=== PATIENT | male | born 1950 | race Caucasian/White ===

== ENCOUNTER → 2016-09-13 | Outpatient (CLI) | payer OTHER, BC ==
[2016-09-13 09:40] LABS: HEMATOCRIT 40.5 % (42-52); MEAN CORPUSCULAR HEMOGLOBIN 29.9 pg (25-34); MEAN CORPUSCULAR HGB CONC 33.6 g/dl (32-36); MEAN PLATELET VOLUME 10.6 fL (7.4-10.4); PLATELET COUNT 284 K/uL (130-400); RED BLOOD COUNT 4.55 M/uL (4.7-6.1); WHITE BLOOD COUNT 3.56 K/uL (4.8-10.8)
[2016-09-13 09:58] LABS: ALT/SGPT 32 U/L (12-78); AST/SGOT 16 U/L (15-37); BLOOD UREA NITROGEN 27 mg/dl (7-18); CALCIUM 8.7 mg/dl (8.5-10.1); CARBON DIOXIDE 24 mmol/L (21-32); CHLORIDE 109 mmol/L (98-107); GLUCOSE 92 mg/dl (70-99); POTASSIUM 4.5 mmol/L (3.5-5.1); SODIUM 142 mmol/L (136-145)
[2016-09-13 10:01] LABS: URINE APPEARANCE CLEAR (CLEAR); URINE BILIRUBIN NEG (NEG); URINE COLOR YELLOW; URINE EPITHELIAL CELL AUTO 0-5 /lpf (0-5); URINE NITRITE NEG (NEG); URINE PH 5.5 (4.5-7.5); URINE SPECIFIC GRAVITY 1.013 (1.000-1.030); UROBILINOGEN NEG (NEG)
[2016-09-13 10:04] LABS: MANUAL MICROSCOPIC REQUIRED? NO; REVIEW REQ? NO
[2016-09-13 10:10] LABS: ALKALINE PHOSPHATASE 71 U/L (45-117); CHOLESTEROL 216 mg/dl (0-200); CHOLESTEROL/HDL RATIO 4.4; HDL CHOLESTEROL 49 mg/dl; LDL CHOLESTEROL CALCULATED 140 mg/dl; TRIGLYCERIDES 136 mg/dl (0-150); URIC ACID 7.4 mg/dl (2.6-7.2); VERY LOW DENSITY LIPOPROT CALC 27 mg/dl
[2016-09-13 10:14] LABS: URINE PROTIEN/CREAT RATIO 0.1 (0-0.2); URINE TOTAL PROTEIN 13.4 mg/dl (0-11.9)
--- NOTE | 2016-09-17 09:57 | CODING QUERY MEDICAL NECESSITY ---
SUPPORTING DIAGNOSIS NEEDED Dr. Arnett, A supporting diagnosis is required for the test/procedure performed on this patient in order for us to be reimbursed by the patient's insurance. Please provide a supporting diagnosis for the following test/procedure listed below next to the test name along with your signature. *If there is no additional diagnosis for this patient that would support the following test/procedure please document that below next to the test/procedure. Test(s)/Procedure(s) that require a supporting diagnosis: * [id number] PSA DIAGNOSIS: DATE OF SERVICE: 09/13/16 Provider Signature: Date: Thank you Keven Mccain [facility] Information Management Once completed, please kindly fax back to [phone] For questions please call [phone]
== END | disposition home or self-care (01) ==
LOC: C.LAB1850 07:06
PROVIDERS: ATTEND Internal Medicine Nephrology
DX: I12.9 Hypertensive chronic kidney disease with stage 1 through stage 4 chronic kidney disease, or unspecified chronic kidney disease (principal); N18.3 Chronic kidney disease, stage 3 (moderate); E55.9 Vitamin D deficiency, unspecified; N40.0 Benign prostatic hyperplasia without lower urinary tract symptoms

== ENCOUNTER → 2017-01-17 | Outpatient (CLI) | payer OTHER, BC ==
--- NOTE | 2017-01-17 16:27 | DIAGNOSTIC IMAGING REPORT ---
RIGHT HIP UNILATERAL 2 VIEWS CLINICAL HISTORY: R HIP PAIN Right pain COMPARISON: None. DISCUSSION: Considerable narrowing right hip joint space. Several degenerative subchondral cyst. Peripheral osteophytic reaction of the acetabulum. No evidence for acetabular protrusion. There is no evidence for soft tissue swelling. IMPRESSION: Considerable degenerative change. No acute process. Electronically signed by: Andry Colon M.D. 01/17/2017 4:25 PM Dictated Date/Time: 01/17/2017 4:25 PM
== END | disposition home or self-care (01) ==
LOC: C.RAD1850 16:13
PROVIDERS: ATTEND Nurse Practitioner Family
DX: M54.5 Low back pain (principal); M25.551 Pain in right hip

== ENCOUNTER → 2017-03-19 | Outpatient (CLI) | payer OTHER, BC ==
[2017-03-19 09:35] LABS: HEMATOCRIT 40.7 % (42-52); MEAN CELL VOLUME 90.6 fL (80-100); MEAN CORPUSCULAR HEMOGLOBIN 29.6 pg (25-34); MEAN CORPUSCULAR HGB CONC 32.7 g/dl (32-36); MEAN PLATELET VOLUME 10.5 fL (7.4-10.4); PLATELET COUNT 275 K/uL (130-400); RED BLOOD COUNT 4.49 M/uL (4.7-6.1); WHITE BLOOD COUNT 3.79 K/uL (4.8-10.8)
[2017-03-19 09:44] LABS: URINE APPEARANCE CLEAR (CLEAR); URINE BILIRUBIN NEG (NEG); URINE COLOR YELLOW; URINE EPITHELIAL CELL AUTO 0-5 /lpf (0-5); URINE NITRITE NEG (NEG); UROBILINOGEN NEG (NEG)
[2017-03-19 09:46] LABS: MANUAL MICROSCOPIC REQUIRED? NO; REVIEW REQ? NO
[2017-03-19 09:57] LABS: URINE PROTIEN/CREAT RATIO 0.1 (0-0.2); URINE TOTAL PROTEIN 18.9 mg/dl (0-11.9)
[2017-03-19 10:06] LABS: BLOOD UREA NITROGEN 26 mg/dl (7-18); BUN/CREATININE RATIO 13.9 (10-20); CALCIUM 8.4 mg/dl (8.5-10.1); CARBON DIOXIDE 24 mmol/L (21-32); CHLORIDE 110 mmol/L (98-107); GLUCOSE 100 mg/dl (70-99); PHOSPHORUS 2.9 mg/dl (2.5-4.9); POTASSIUM 4.4 mmol/L (3.5-5.1); SODIUM 139 mmol/L (136-145); URIC ACID 8.6 mg/dl (2.6-7.2)
== END | disposition home or self-care (01) ==
LOC: C.LAB1850 07:17
PROVIDERS: ATTEND Internal Medicine Nephrology
DX: I10 Essential (primary) hypertension (principal); E55.9 Vitamin D deficiency, unspecified; N18.3 Chronic kidney disease, stage 3 (moderate)

== ENCOUNTER → 2017-09-29 | Outpatient (CLI) | payer OTHER, BC ==
[2017-09-29 09:33] LABS: HEMATOCRIT 39.5 % (42-52); HEMOGLOBIN 13.4 g/dL (14.0-18.0); MEAN CORPUSCULAR HEMOGLOBIN 30.2 pg (25-34); MEAN CORPUSCULAR HGB CONC 33.9 g/dl (32-36); MEAN PLATELET VOLUME 9.9 fL (7.4-10.4); PLATELET COUNT 294 K/uL (130-400); RED CELL DISTRIBUTION WIDTH CV 13.3 % (11.5-14.5); RED CELL DISTRIBUTION WIDTH SD 43.1 fL (36.4-46.3); WHITE BLOOD COUNT 3.97 K/uL (4.8-10.8)
[2017-09-29 09:55] LABS: ALBUMIN 3.7 gm/dl (3.4-5.0); ALT/SGPT 32 U/L (12-78); AST/SGOT 16 U/L (15-37); BLOOD UREA NITROGEN 25 mg/dl (7-18); CALCIUM 8.6 mg/dl (8.5-10.1); CARBON DIOXIDE 24 mmol/L (21-32); GLUCOSE 92 mg/dl (70-99); POTASSIUM 4.4 mmol/L (3.5-5.1); SODIUM 137 mmol/L (136-145)
[2017-09-29 10:06] LABS: ALKALINE PHOSPHATASE 72 U/L (45-117); CHOLESTEROL 233 mg/dl (0-200); LDL CHOLESTEROL CALCULATED 159 mg/dl; TOTAL PROTEIN 7.7 gm/dl (6.4-8.2)
== END | disposition home or self-care (01) ==
LOC: C.LAB1850 07:15
PROVIDERS: ATTEND Internal Medicine Nephrology
DX: I12.9 Hypertensive chronic kidney disease with stage 1 through stage 4 chronic kidney disease, or unspecified chronic kidney disease (principal); N18.3 Chronic kidney disease, stage 3 (moderate); E55.9 Vitamin D deficiency, unspecified

== ENCOUNTER 2019-06-09 04:50 | Inpatient (IN) ==
--- NOTE | 2019-05-11 08:46 | PAT Medication Instructions ---
Medication Instructions Date of Service May 11, 2019 Home Medications C,E,zinc,copper [id number] [Ocuvite Adult 50 Plus] 1 cap PO DAILY Curamin 2,706 mg PO DAILY Glutathione 500 mg PO DAILY Monolaurin 600 mg PO DAILY Phytocore 1 dose PO DAILY activated charcoal 1,000 mg PO DAILY ascorbic acid (vitamin C) [Vitamin C] 1 g PO DAILY brimonidine-timolol [Combigan] 1 drp OPHTHALMIC (EYE) Q12H rbinehcxt-lnufakrz-zom-hyalur [Joint Health] 1 tab PO DAILY cholecalciferol (vitamin D3) [Vitamin D3] 4,000 unit PO DAILY latanoprost 1 drp OPHTHALMIC (EYE) DAILY lisinopril 5 mg PO QAM vitamin B complex [Balance B-100] 1 tab PO DAILY STOP taking 2 weeks before surgery (or as soon as possible if surgery is within 2 weeks) C,E,zinc,copper [id number] [Ocuvite Adult 50 Plus] 1 cap PO DAILY Curamin 2,706 mg PO DAILY Glutathione 500 mg PO DAILY Monolaurin 600 mg PO DAILY Phytocore 1 dose PO DAILY activated charcoal 1,000 mg PO DAILY brimonidine-timolol [Combigan] 1 drp OPHTHALMIC (EYE) Q12H cqfhsejlc-amjwxpub-bnb-hyalur [Joint Health] 1 tab PO DAILY DO NOT take the morning of surgery ascorbic acid (vitamin C) [Vitamin C] 1 g PO DAILY cholecalciferol (vitamin D3) [Vitamin D3] 4,000 unit PO DAILY lisinopril 5 mg PO QAM vitamin B complex [Balance B-100] 1 tab PO DAILY Take morning of surgery With a small sip of water, OTHERWISE NOTHING TO EAT OR DRINK AFTER MIDNIGHT: brimonidine-timolol [Combigan] 1 drp OPHTHALMIC (EYE) Q12H latanoprost 1 drp OPHTHALMIC (EYE) DAILY Other Notes If you have any questions please call us at [phone] or [phone] or [phone] or [phone]
--- NOTE | 2019-05-13 13:03 | Anesthesiology Consultation ---
Date of Service May 13, 2019 Assessment & Plan (1) Encounter for pre-operative examination: - Awaiting review preop testing (labs, EKG, CXR). - Abnormal preop EKG/elevated BP at [facility] visit: will arrange cardiology preop evaluation prior to surgery. Chart Review Chart Review: Patient seen in Pre Admission Testing Teaching & Discussion Pre-Anesthesia Teaching/Discussion Notes: Instructed NPO after midnight before surgery,except medications with 15 cc of water. Medication instructions provided according to the [facility] guidelines. History Surgery Operation Date: 06/09/19 14:05 Proposed Procedures p Right Total Hip Arthroplasty - Ugo Young MD Height/Weight Height: 5 ft 10 in Weight: 86.4 kg Allergies Allergy/AdvReac Type Severity Reaction Status Date / Time latex Allergy Unknown Rash Verified 05/13/19 13:01 Medications Home Medications Medication Instructions Recorded Confirmed Last Taken C,E,zinc,copper [id number] 1 cap PO DAILY 05/05/19 05/05/19 Unknown [Ocuvite Adult 50 Plus] Curamin 2,706 mg PO DAILY 05/05/19 05/05/19 Unknown Glutathione 500 mg PO DAILY 05/05/19 05/05/19 Unknown Monolaurin 600 mg PO DAILY 05/05/19 05/05/19 Unknown Phytocore 1 dose PO DAILY 05/05/19 05/05/19 Unknown activated charcoal 1,000 mg PO DAILY 05/05/19 05/05/19 Unknown ascorbic acid (vitamin C) [Vitamin 1 g PO DAILY 05/05/19 05/05/19 Unknown C] brimonidine-timolol [Combigan] 1 drp OPHTHALMIC (EYE) Q12H 05/05/19 05/05/19 Unknown obcwhnerf-leoumtyi-uka-hyalur 1 tab PO DAILY 05/05/19 05/05/19 Unknown [Joint Health] cholecalciferol (vitamin D3) 4,000 unit PO DAILY 05/05/19 05/05/19 Unknown [Vitamin D3] latanoprost 1 drp OPHTHALMIC (EYE) DAILY 05/05/19 05/05/19 Unknown lisinopril 5 mg PO QAM 05/05/19 05/05/19 Unknown vitamin B complex [Balance B-100] 1 tab PO DAILY 05/05/19 05/05/19 Unknown Past Medical History Medical History Borderline high cholesterol CKD (chronic kidney disease) Hernia b/l inguinal Hypertension Osteoarthritis Exercise / Class Metabolic Activity II 4-5 Yardwork/Stairs/Walk up hill Past Surgical History Surgical History History of colonoscopy History of tonsillectomy and adenoidectomy History of vasectomy Past Anesthesia History No Hx of Anesthesia Complications and No Family Hx of Anesthesia Complications History of PONV No Hx of PONV Social History Smoking Status: Never smoker Do You Dip or Chew Tobacco: No Hx Alcohol Use: Yes Alcohol type: wine alcohol intake frequency: other Alcohol Intake Frequency Comment: WEEKENDS, FEW GLASSES OF WINE Hx Substance Use: No substance use type: does not use Review of Systems Rare reflux. Patient denies chest pain, shortness of breath, dyspnea on exertion, cough, wheezing, palpitations. Physical Exam Vital Signs VITALS BP 182/103-- patient reports white coat syndrome/thinks he forgot to take Lisinopril this morning-- manual recheck on right 162/92 P 84 TEMP 97.8 SP02 98%RA RESP 18 PHYSICAL Full neck and c-spine range of motion. Full TMJ range of motion. TMD 2 finger breaths (small chin) Mallampati Score 3 Dentition: missing molars, upper front overlays, cap on molar Lungs: clear throughout to auscultation Cardiac: regular rate and rhythm, no murmurs noted Spine: normal Carotid arteries: negative bruit Extremities: no edema
--- NOTE | 2019-05-13 13:55 | XRay Report ---
XR chest Pre-admission PA/Lat CLINICAL HISTORY: Preoperative chest COMPARISON STUDY: No previous studies for comparison. FINDINGS: The cardiac and mediastinal contours are normal. There is no evidence of focal pulmonary co nsolidation. There is no evidence of failure. No pleural effusions are visualized.[Degenerative montague es are present within the dorsal spine with evidence of ankylosis. IMPRESSION: No active disease in the chest. Electronically signed by: Jimbo Meza M.D. 05/13/2019 1:54 PM
[2019-05-13 14:00] LABS: Basophils # (auto) 0.05 K/uL (0-0.2); Basophils % (auto) 0.9 %; Eosinophils # (auto) 0.88 K/uL (0-0.5); Eosinophils % (auto) 15.7 %; Hematocrit (blood only) 40.7 % (42-52); Hemoglobin 13.5 g/dL (14.0-18.0); Immature Granulocytes # (auto) 0.01 K/uL (0.00-0.02); Immature Granulocytes % (auto) 0.2 %; Lymphocytes # (auto) 1.55 K/uL (1.2-3.4); Lymphocytes % (auto) 27.6 %; Mean Corpuscular Hemoglobin 30.3 pg (25-34); Mean Corpuscular Hgb Conc 33.2 g/dL (32-36); Mean Corpuscular Volume 91.3 fL (80-100); Mean Platelet Volume 10.4 fL (7.4-10.4); Monocytes # (auto) 0.51 K/uL (0.11-0.59); Monocytes % (auto) 9.1 %; Neutrophils # (auto) 2.61 K/uL (1.4-6.5); Neutrophils % (auto) 46.5 %; Platelet Count 270 K/uL (130-400); RDW Coefficient of Variation 13.3 % (11.5-14.5); RDW Standard Deviation 44.3 fL (36.4-46.3); Red Blood Count 4.46 M/uL (4.7-6.1); White Blood Count 5.61 K/uL (4.8-10.8)
[2019-05-13 14:20] LABS: Partial Thromboplastin Ratio 0.9; Partial Thromboplastin Time 24.5 Seconds (21.0-31.0); Prothrombin Time 10.3 Seconds (9.0-12.0)
--- NOTE | 2019-05-13 14:25 | Anesthesiology Consultation ---
Date of Service May 13, 2019 Assessment & Plan (1) Encounter for pre-operative examination: - Awaiting review preop testing (labs, EKG, CXR). - Abnormal preop EKG/elevated BP at PAT visit: will arrange cardiology preop evaluation prior to surgery for further evaluation. History Surgery Operation Date: 06/09/19 14:05 Proposed Procedures p Right Total Hip Arthroplasty - Ugo Young MD Height/Weight Height: 5 ft 10 in Weight: 86.4 kg Allergies Allergy/AdvReac Type Severity Reaction Status Date / Time latex Allergy Unknown Rash Verified 05/13/19 13:01 Medications Home Medications Medication Instructions Recorded Confirmed Last Taken C,E,zinc,copper [id number] 1 cap PO DAILY 05/05/19 05/05/19 Unknown [Ocuvite Adult 50 Plus] Curamin 2,706 mg PO DAILY 05/05/19 05/05/19 Unknown Glutathione 500 mg PO DAILY 05/05/19 05/05/19 Unknown Monolaurin 600 mg PO DAILY 05/05/19 05/05/19 Unknown Phytocore 1 dose PO DAILY 05/05/19 05/05/19 Unknown activated charcoal 1,000 mg PO DAILY 05/05/19 05/05/19 Unknown ascorbic acid (vitamin C) [Vitamin 1 g PO DAILY 05/05/19 05/05/19 Unknown C] brimonidine-timolol [Combigan] 1 drp OPHTHALMIC (EYE) Q12H 05/05/19 05/05/19 Unknown durqptwbn-ktmwvmer-pvc-hyalur 1 tab PO DAILY 05/05/19 05/05/19 Unknown [Joint Health] cholecalciferol (vitamin D3) 4,000 unit PO DAILY 05/05/19 05/05/19 Unknown [Vitamin D3] latanoprost 1 drp OPHTHALMIC (EYE) DAILY 05/05/19 05/05/19 Unknown lisinopril 5 mg PO QAM 05/05/19 05/05/19 Unknown vitamin B complex [Balance B-100] 1 tab PO DAILY 05/05/19 05/05/19 Unknown Past Medical History Medical History Borderline high cholesterol CKD (chronic kidney disease) Hernia b/l inguinal Hypertension Osteoarthritis Past Surgical History Surgical History History of colonoscopy History of tonsillectomy and adenoidectomy History of vasectomy Social History Smoking Status: Never smoker Do You Dip or Chew Tobacco: No Hx Alcohol Use: Yes Alcohol type: wine alcohol intake frequency: other Alcohol Intake Frequency Comment: WEEKENDS, FEW GLASSES OF WINE Hx Substance Use: No substance use type: does not use Testing Laboratory Results 05/13/19 12:56 PT 10.3 Seconds (9.0-12.0) 05/13/19 12:56 INR 1.0 (0.9-1.1) 05/13/19 12:56 APTT 24.5 Seconds (21.0-31.0) 05/13/19 12:56
[2019-05-13 14:46] LABS: BUN Creatinine Ratio 14.7 (10-20); Calcium 8.5 mg/dl (8.5-10.1); Creatinine Clr Calc Pharmacy 38.6 ml/min; Est GFR (African American) 42.1; Est GFR (Non-African American) 36.3; Potassium 4.1 mmol/L (3.5-5.1)
--- NOTE | 2019-06-05 12:10 | History and Physical Report ---
DATE OF ADMISSION: 06/09/2019 CHIEF COMPLAINT: Right hip pain. HISTORY OF PRESENT ILLNESS: A 68-year-old very active gentleman who has got about a 1+ year history of increasing right hip pain and discomfort. No particular injury. It has just gradually gotten worse over time. He describes buttock pain, groin pain, thigh pain going down to his knee. Denies any numbness. He does have some chronic back issues as well. This pain feels different to him. It is really limiting his activities. He cannot take NSAIDs due to some underlying kidney disease. He does have difficulty putting his shoes and socks on. He has difficulty going up and down steps. He has nighttime discomfort. It is really affecting his lifestyle and he would like to have his right hip pain fixed. PAST MEDICAL HISTORY: 1. Hypertension. 2. Hiatal hernia. 3. Low back pain. PAST SURGICAL HISTORY: Includes: 1. Herniorrhaphy. 2. Tonsillectomy. ALLERGIES: 1. PENICILLIN WHEN HE WAS A KID, REACTIONS UNKNOWN. 2. LATEX WHICH CAUSES A RASH. CURRENT MEDICATIONS: Include lisinopril. SOCIAL HISTORY: A 68-year-old male. He is . 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 FAMILY HISTORY: Noncontributory. REVIEW OF HISTORY: Negative for diabetes, neurologic problems, vascular problems or bleeding disorders. He does have underlying kidney disease. No history of DVT or PE. PHYSICAL EXAMINATION: GENERAL: Shows a pleasant, middle-aged male, looks to be in pretty good health. HEENT: Benign. NECK: Supple, no lymphadenopathy. LUNGS: Clear to auscultation. HEART: Regular rate and rhythm. ABDOMEN: Soft, nontender, nondistended. EXTREMITIES: Grossly neurovascularly intact except as follows: Examination of the right hip reveals the patient walks with a slightly antalgic gait. Leg lengths appear pretty equal. He does have significant pain with any type of hip motion. He can internally rotate to neutral. External rotation to 25 degrees. Negative straight leg raise. He is neurologically intact. X-RAYS: X-rays of the right hip were reviewed. It shows advanced right hip DJD. He has got complete loss of the superior joint space. He has cystic changes of the femoral head and acetabulum. He has arthritic changes on the left side too but not as severe. ASSESSMENT: A 68-year-old male with advanced right hip degenerative joint disease. Unfortunately, he cannot take NSAIDs due to some underlying kidney disease. He would like to have his hip fixed. PLAN: We are going to proceed with a right total hip replacement. The risks and benefits of this procedure were explained to the patient including but not limited to DVT, PE, , infection, neurological injury, vascular injury, bleeding problem, pain, limited range of motion, stiffness, failure to relieve his symptoms, incomplete relief of symptoms, need for further surgery in the future, fracture, leg length inequality, nerve palsy, dislocation, etc. The patient understands and desires to proceed. Informed consent was obtained. As far as postoperative pain, we are going to have to avoid NSAIDs. We will likely use a baby aspirin, but no other NSAIDs. We will use Tylenol and likely tramadol. As far as discharge plans, he is planning to be discharged home using the [facility] home health program.
[2019-06-09] MEDS ORDERED: LR 500ML BOLUS, THEN 15ML/HR IV SCH (06:00)
[2019-06-09] MEDS ORDERED: TRANEXAMIC ACID 1,000 MG **IV Pre-op IV SCH (06:00)
[2019-06-09] MEDS ORDERED: LR 60ML/HR IV SCH (06:00)
[2019-06-09] MEDS ORDERED: ACETAMINOPHEN 500 MG TAB PO SCH (06:00)
[2019-06-09] MEDS ORDERED: FAMOTIDINE 20 MG TAB PO SCH (06:00)
[2019-06-09] MEDS ORDERED: CEFAZOLIN 2000MG 2,000 MG/15 ML SYR IV SCH (06:00)
[2019-06-09] MEDS ORDERED: METOCLOPRAMIDE HCL 10 MG TABLET PO SCH (06:00)
[2019-06-09] MEDS ORDERED: GABAPENTIN 300 MG CAP PO SCH (06:00)
[2019-06-09] MEDS ORDERED: BUPIVACAINE 0.5 % 5 MG/1 ML PF 10ML VIAL ONE (06:23)
[2019-06-09] MEDS ORDERED: fentaNYL citrate 100 MCG/2 ML VIAL ONE (06:40)
[2019-06-09] MEDS ORDERED: MIDAZOLAM HCL 1 MG/ML 2ML VIAL ONE (06:40)
[2019-06-09] MEDS ORDERED: PROPOFOL IV EMULSION 10 MG/ML 20 ML VIAL IV ONE (06:44)
[2019-06-09] MEDS ORDERED: LIDOCAINE HCL 2% 2 ML VIAL/AMP(20MG/ML) INFIL ONE (06:44)
[2019-06-09] MEDS ORDERED: ONDANSETRON INJ 2 MG/ML 2 ML VIAL ONE (06:44)
[2019-06-09] MEDS ORDERED: ONDANSETRON INJ 2 MG/ML 2 ML VIAL IV PRN ×2 (06:50→07:08)
[2019-06-09] MEDS ORDERED: fentaNYL citrate 100 MCG/2 ML VIAL IV PRN (06:50)
[2019-06-09] MEDS ORDERED: ePHEDrine sulfate 50 MG/ML AMP IV PRN ×2 (06:50→07:08)
[2019-06-09] MEDS ORDERED: ATROPINE SULFATE 0.1 MG/ML 10ML SYR IV PRN (06:50)
[2019-06-09] MEDS ORDERED: MoRPHine SULFATE PF 1 MG/ML 10 ML AMP/VIAL ONE (06:51)
[2019-06-09] MEDS ORDERED: BUPIVACAINE 0.5 % 5 MG/1 ML MPF 30ML VIAL ONE ×2 (06:55→07:01)
[2019-06-09] MEDS ORDERED: EpINEphrine HCL INJ 1 MG/ML 1ML SYRINGE ONE (06:57)
--- NOTE | 2019-06-09 06:59 | History & Physical Bridge Note ---
Date of Service June 09, 2019 History & Physical Bridge Note I have examined the patient, reviewed the History & Physical and in the interval since the performance of the History & Physical I have noted the following changes of clinical significance: no changes noted
[2019-06-09] MEDS ORDERED: BACITRACIN INJ 50,000 UNIT VIAL ONE (07:06)
[2019-06-09] MEDS ORDERED: NALOXONE HCL 0.4 MG/1 ML VIAL/CARP IV PRN (07:08)
[2019-06-09] MEDS ORDERED: LACTATED RINGER'S 500 ML IV PRN (07:08)
[2019-06-09] MEDS ORDERED: HYDROmorphone INJ 0.5 MG/0.5 ML SYR IV PRN (07:08)
[2019-06-09] MEDS ORDERED: PROMETHAZINE HCL 12.5 MG in SODIUM CHLORIDE 0.9% 50 ML IV PRN (07:08)
[2019-06-09] MEDS ORDERED: MoRPHine SULFATE 2 MG/ML CARP IV PRN (07:08)
[2019-06-09] MEDS ORDERED: NALBUPHINE HCL INJ 10 MG/ML AMP IV PRN (07:08)
[2019-06-09] MEDS ORDERED: DiphenhydrAMINE HCL 50 MG/ML VIAL IV PRN (07:08)
[2019-06-09] MEDS ORDERED: MoRPHine SULFATE PF 1 MG/ML 10 ML AMP/VIAL INT SPINAL ONE (07:08)
[2019-06-09] MEDS ORDERED: NALOXONE HCL 1 MG in SODIUM CHLORIDE 0.9% 1000ML 1,000 ML IV PRN (07:08)
[2019-06-09] MEDS ORDERED: NALOXONE HCL 0.08 MG in SYRINGE 1.8 ML IV PRN (07:08)
[2019-06-09] MEDS ORDERED: SODIUM CHLORIDE 0.9% 1000ML 1,000 ML IV SCH (07:15)
[2019-06-09] MEDS ORDERED: DC INTRASPINAL MORPHINE SCH (07:15)
[2019-06-09] MEDS ORDERED: NO NARCOTICS OR SEDATIVES SCH (07:15)
[2019-06-09] MEDS ORDERED: ePHEDrine sulfate 50 MG/ML SYR ONE (07:36)
[2019-06-09] MEDS ORDERED: PHENYLEPHRINE HCL 10 MG/ML VIAL ONE (08:27)
--- NOTE | 2019-06-09 08:37 | Post Operative Brief Note ---
PG Immediate Post Op with CF Date of Surgery June 09, 2019 Pre & Post Diagnosis Operation Date: 06/09/19 07:15 Pre-Op Diagnosis: RIGHT HIP DEGENERATIVE JOINT DISEASE Post-Op Diagnosis: RIGHT HIP DEGENERATIVE JOINT DISEASE I identified the patient and participated in the time-out.: Yes Procedure Operation Date: 06/09/19 07:15 Actual Procedures p Right Total Hip Replacement(Right) - Ugo Young MD Surgeon Ugo Young MD Group Director Uyen, PAC Estimated Blood Loss 300 Findings Consistent with Post-Op Diagnosis Fluids 1200 cc Specimens Specimen Description: Permanent Specimen A: Right femural head Anesthesia Type Spinal MAC Complications none Disposition Accompanied Patient To Recovery: Yes Disposition: Recovery Room
--- NOTE | 2019-06-09 08:59 | XRay Report ---
XR hip 1V RT w pelvis CLINICAL HISTORY: IN PACU - A/P PELVIS and LATERAL HIP COMPARISON: 01/17/2017 DISCUSSION: There are postsurgical changes of a total right hip arthroplasty. The acetabular and femo ral components appear well seated. There is no dislocation. There are overlying skin tao. IMPRESSION: Postsurgical changes of a total right hip arthroplasty. Electronically signed by: Jimbo Meza M.D. 06/09/2019 8:57 AM
[2019-06-09] MEDS ORDERED: ALUMINUM/MAGNESIUM SUSP 30 ML UDC PO PRN (09:50)
[2019-06-09] MEDS ORDERED: ACTIVATED CHARCOAL PO SCH (09:50)
[2019-06-09] MEDS ORDERED: METOCLOPRAMIDE HCL INJ 5 MG/ML 2 ML VIAL IV PRN (09:50)
[2019-06-09] MEDS ORDERED: NON-FORMULARY MEDICATION (Cartilage-Collagen-Bor-Hyalur [Joint Health] 1 TAB) PO SCH (09:50)
[2019-06-09] MEDS ORDERED: TAMSULOSIN HCL 0.4 MG CAP PO PRN (09:50)
[2019-06-09] MEDS ORDERED: NON-FORMULARY MEDICATION (C,E,Zinc,Copper 11-Omega3s-Lut [Ocuvite Adult 50 Plus] 1 CAP) PO SCH (09:50)
[2019-06-09] MEDS ORDERED: MAGNESIUM HYDROXIDE SUSP 30 ML UDC PO PRN (09:50)
[2019-06-09] MEDS ORDERED: NO NSAIDS SCH (09:50)
[2019-06-09] MEDS ORDERED: NON-FORMULARY MEDICATION (Ascorbic Acid (Vitamin C) [Vitamin C] 1 GM) PO SCH (09:50)
[2019-06-09] MEDS ORDERED: BISACODYL 10 MG SUPP PR PRN (09:50)
[2019-06-09] MEDS: SODIUM CHLORIDE 0.9% 1000ML 1,000 ML IV SCH ×2 (10:53→21:26)
[2019-06-09] MEDS: ASPIRIN 81 MG ECTAB PO SCH ×2 (10:57→20:58)
[2019-06-09] MEDS: MULTIVITAMIN TAB PO SCH (10:57)
[2019-06-09] MEDS: LATANOPROST 0.005% OP SOLN 2.5 ML BTL OP SCH (10:57)
[2019-06-09] MEDS: DOCUSATE SODIUM 100 MG CAP PO SCH ×2 (10:57→20:58)
[2019-06-09] MEDS: LISINOPRIL 5 MG TAB PO SCH (10:58)
--- NOTE | 2019-06-09 11:45 | Anesthesiology Progress Note ---
Date of Service June 09, 2019 Anesthesia Post Procedure Vital Signs Vital Signs: Temp Pulse Pulse Resp BP Pulse Ox 06/09/19 11:34 36.6 C 84 18 151/87 H 100 06/09/19 10:26 77 18 157/91 H 100 06/09/19 10:02 36.6 C 74 18 157/93 H 99 06/09/19 09:30 37.0 C 73 18 152/78 H 98 06/09/19 09:24 36.6 C 96 06/09/19 09:15 66 18 156/97 H 99 06/09/19 09:05 73 18 150/91 H 99 06/09/19 08:55 71 15 132/93 100 06/09/19 08:45 82 19 132/75 100 06/09/19 08:39 36.8 C 83 16 141/77 H 99 06/09/19 05:27 36.8 C 77 20 180/107 H 99 Pain Intensity Right Hip: Pain Intensity: 0 Transfer of Care Handoff Completed per policy Notes Mental Status: alert / awake / arousable and participated in evaluation Patient Amnestic to Procedure: Yes Nausea / Vomiting: adequately controlled Pain: adequately controlled Airway Patency, RR, SpO2: stable & adequate BP & HR: stable & adequate Hydration State: stable & adequate Neuraxial Anesthesia: was administered and sensory block is resolving Anesthetic Complications: no major complications apparent and Pt Satisfied with anesthetic care
[2019-06-09] MEDS: ACETAMINOPHEN 500 MG TAB PO SCH ×2 (13:18→20:58)
[2019-06-09] MEDS: CEFAZOLIN 2000MG 2,000 MG/15 ML SYR IV SCH ×2 (14:33→21:53)
[2019-06-09] MEDS ORDERED: TRANEXAMIC ACID 1,000 MG in 0.9 % SODIUM CHLORIDE 100 ML IV SCH (14:38)
[2019-06-09] MEDS ORDERED: INFLUENZA VACCINE HIGH DOSE 65+ 0.5 ML SYR IM ONE (18:00)
[2019-06-09] MEDS ORDERED: PNEUMOCOCCAL ADMINISTRATION CHARGE ONE (18:00)
[2019-06-09] MEDS ORDERED: INFLUENZA ADMINISTRATION CHARGE ONE (18:00)
[2019-06-09] MEDS ORDERED: PNEUMOCOCCAL POLYSACCHARIDES 25 MCG/0.5 ML VIAL/SYR IM ONE (18:00)
[2019-06-09] MEDS: ASCORBIC ACID 500 MG TAB PO SCH (18:08)
[2019-06-09] MEDS: FERROUS GLUCONATE 324 MG TAB PO SCH (18:08)
--- NOTE | 2019-06-09 19:50 | Operative Report ---
DATE OF OPERATION: 06/09/2019 SURGEON: Ugo Young MD. COMMODITY ANALYST: MARII Gandhi. PREOPERATIVE DIAGNOSIS: Right hip degenerative joint disease. POSTOPERATIVE DIAGNOSIS: Right hip degenerative joint disease. PROCEDURE PERFORMED: Right uncemented ceramic on highly cross-linked polyethylene total hip arthroplasty. COMPLICATIONS: None. ESTIMATED BLOOD LOSS: 300 mL. FLUID REPLACEMENT: 1200 mL of crystalloid fluid replacement. ANESTHESIA: Spinal. DRAINS: None. SPECIMENS: Right femoral head sent for pathology. OPERATIVE INDICATIONS: The patient is a 68-year-old gentleman who has had a 1-year history of gradually and progressively increasing right hip pain and discomfort, unresponsive to conservative care. X-rays show advanced hip DJD that has progressed over the past year. He failed conservative treatment and elected to proceed with surgical management. OPERATIVE FINDINGS: Operative findings revealed advanced right hip DJD. He had grade 4 ahqf-za-gmiz disease of the femoral head and acetabulum. He had moderate-sized joint effusion. Small anterior acetabular osteophytes. OPERATIVE IMPLANTS: Operative implants consisted of: 1. A Biomet G7 size 54 mm acetabular shell. 2. [place] hole eliminator. 3. A 6.5 cancellous acetabular screws, one of 35 mm length and one of 25 mm length. 4. Highly cross-linked polyethylene liner with 54 mm outer diameter and 36 mm inner diameter. 5. DePuy Corail size 12 KLA femoral stem. 6. A +1.5/36 mm ceramic articular ball. OPERATIVE PROCEDURE: The patient was taken to the operating room, identified and placed on the operating table in supine position. All contact areas were appropriately padded. IV antibiotics were provided by anesthesia team. A spinal anesthetic had been implemented in the holding area. Purcell catheter was placed in sterile fashion. The patient was then placed in the left lateral decubitus position. An axillary roll was placed. Stlberg hip positioner was used for positioning. Right hip and leg were then prepped and draped in usual sterile fashion. A posterolateral approach to the right hip was then performed through a curvilinear incision centered over the greater trochanter. Sharp dissection was carried through the subcutaneous tissue down to the level of the IT band and gluteal fascia. The IT band and gluteal fascia were incised longitudinally in line with skin incision. The underlying greater trochanteric bursa was excised. The piriformis and external rotators were tagged and taken off the posterior aspect of the hip joint capsule. Great care was taken throughout the procedure to protect the sciatic nerve at all times. Posterior capsulotomy was then performed leaving a large flap for later repair. Hip was internally rotated and dislocated. Femoral neck osteotomy cut was made with final cut about 1 cm above the lesser trochanter. Femoral head was removed and sent for pathology. The femur was retracted anteriorly. Attention was then drawn to the acetabulum. The acetabulum labrum was excised. The pulvinar fat was excised. Sequential reaming of the acetabulum was then performed beginning with size 45 and progressing up to 53. A 54 mm Biomet G7 acetabular shell was then placed in about 40 degrees of lateral opening and 20 degrees of anteversion. It was fixed with two 6.5 cancellous acetabular screws. Some small anterior osteophytes were removed. Attention was then drawn to the femur. The proximal femur was entered with a cookie cutter followed by canal finder. I then broached beginning with a size 8 and progressing up to 12. We got excellent fit at 12. Calcar reamer was used to smoothen off the calcar. I then trialed the hip and the +5 articular ball provided full stability and full extension and external rotation and flexion to 90 degrees, internal rotation over [address] I elected to place these implants. Leg lengths did also appear appropriate and soft tissue tension was appropriate. All trial implants were removed. An apex hole eliminator was placed. Highly cross-linked polyethylene liner was placed. A DePuy Corail size 12 KLA femoral stem was impacted in position. A +5/36 mm ceramic articular ball was placed. Hip was located and once again found to be stable. Attention was then drawn toward closing. The wound was irrigated with copious amounts of pulsatile lavage solution. I did inject locally with 60 mL of 0.5% Marcaine with epinephrine. The posterior capsule and external rotators were then repaired through drill holes in the posterior trochanter with #2 Ti-Cron suture. The IT band and gluteal fascia were then closed with #1 PDS suture in running fashion. Subcutaneous tissue was then closed with 2 layers with deep layer #1 Vicryl suture and subcutaneous tissues with 2-0 Dexon suture in a buried interrupted fashion. Skin was closed with skin tao. Leg was then cleaned, dried and a sterile dressing with Xeroform, 4 x 4, sterile ABD pad and foam tape was applied. The patient was then transferred to the recovery room in stable condition. The patient tolerated the procedure well with no complications. All needle and sponge counts were correct at the end of the operation. I attest to the content of the Intraoperative Record and any orders documented therein. Any exception s are noted below.
[2019-06-09] MEDS ORDERED: SENNA 8.6 MG TAB PO SCH (21:00)
[2019-06-10] MEDS ORDERED: ONDANSETRON INJ 2 MG/ML 2 ML VIAL IV PRN (01:09)
[2019-06-10] MEDS ORDERED: HYDROmorphone INJ 0.5 MG/0.5 ML SYR IV PRN (01:09)
[2019-06-10] MEDS ORDERED: NALOXONE HCL 0.4 MG/1 ML VIAL/CARP IV PRN (01:09)
[2019-06-10 05:46] LABS: Basophils # (auto) 0.02 K/uL (0-0.2); Basophils % (auto) 0.3 %; Eosinophils % (auto) 1.5 %; Hematocrit (blood only) 32.8 % (42-52); Hemoglobin 10.7 g/dL (14.0-18.0); Immature Granulocytes # (auto) 0.01 K/uL (0.00-0.02); Immature Granulocytes % (auto) 0.1 %; Lymphocytes % (auto) 13.1 %; Mean Corpuscular Hemoglobin 30.1 pg (25-34); Mean Corpuscular Hgb Conc 32.6 g/dL (32-36); Mean Corpuscular Volume 92.4 fL (80-100); Mean Platelet Volume 10.2 fL (7.4-10.4); Monocytes % (auto) 14.6 %; Neutrophils # (auto) 4.83 K/uL (1.4-6.5); Neutrophils % (auto) 70.4 %; Platelet Count 197 K/uL (130-400); RDW Coefficient of Variation 13.3 % (11.5-14.5); RDW Standard Deviation 45.6 fL (36.4-46.3); Red Blood Count 3.55 M/uL (4.7-6.1); White Blood Count 6.86 K/uL (4.8-10.8)
[2019-06-10 06:25] LABS: Calcium 8.1 mg/dl (8.5-10.1); Creatinine Clr Calc Pharmacy 36.6 ml/min; Est GFR (African American) 39.5; Est GFR (Non-African American) 34.1; Potassium 4.6 mmol/L (3.5-5.1)
[2019-06-10] MEDS: TRAMADOL HCL 50 MG TABLET PO PRN ×2 (06:28→12:41)
[2019-06-10] MEDS: ACETAMINOPHEN 500 MG TAB PO SCH (06:28)
--- NOTE | 2019-06-10 07:37 | Progress Note ---
DATE: 06/10/2019 SUBJECTIVE: A 68-year-old gentleman postop day 1 from right hip replacement. He is doing pretty well. He was out of bed and walking the halls last evening. Reasonable night sleeping. No chest pain or shortness of breath. Not feeling dizzy or lightheaded. OBJECTIVE: VITAL SIGNS: Temperature 36.8. Vital signs stable. GENERAL: Pleasant elderly male. He is sitting up in bed and looks pretty comfortable this morning. EXTREMITIES: Examination of the right hip reveals the leg lengths to be equal. Hip is located. Dressing is clean, dry and intact. Thigh is soft and supple. He is neurologically intact. He can dorsiflex and plantarflex his foot appropriately. LABORATORY DATA: Hemoglobin 10.3. Hematocrit 32.8. Electrolytes are stable. He has got chronic renal insufficiency and his creatinines are pretty stable. It is about baseline. ASSESSMENT: A 68-year-old gentleman postop day 1 from right hip replacement, doing pretty well. Pain seems to be controlled. Hip is located. He is neurologically intact. PLAN: 1. DVT prophylaxis including thigh-high TEDs, SCDs, and baby aspirin twice a day. 2. PT/OT. Weight bear as tolerated. Right total hip protocol. 3. Pain control, doing pretty well with current pain regimen. 4. Anemia. He is mildly anemic. He is asymptomatic. Will continue iron supplementation. 5. Chronic renal insufficiency. Renal function appears stable. 6. Disposition: Plan to discharge to home with some home health once medically stable and recovered.
--- NOTE | 2019-06-10 08:19 | Anesthesiology Progress Note ---
Date of Service June 10, 2019 Anesthesia Post Procedure Vital Signs Vital Signs: Temp Pulse Pulse Resp BP Pulse Ox 06/10/19 08:11 37.0 C 86 16 129/72 93 06/10/19 03:40 36.8 C 81 16 145/73 H 97 06/10/19 00:35 16 94 06/09/19 23:30 18 95 06/09/19 23:15 36.7 C 81 18 114/64 95 06/09/19 22:30 11 L 94 06/09/19 21:30 14 98 06/09/19 20:25 36.9 C 83 16 125/67 98 06/09/19 19:28 15 98 06/09/19 18:30 15 99 06/09/19 18:07 14 100 06/09/19 16:30 10 L 98 06/09/19 15:30 36.6 C 77 15 136/73 100 06/09/19 14:23 16 100 06/09/19 13:41 12 100 06/09/19 12:35 36.7 C 83 18 145/87 H 100 06/09/19 11:34 36.6 C 84 18 151/87 H 100 06/09/19 10:26 77 18 157/91 H 100 06/09/19 10:02 36.6 C 74 18 157/93 H 99 06/09/19 09:30 37.0 C 73 18 152/78 H 98 06/09/19 09:24 36.6 C 96 06/09/19 09:15 66 18 156/97 H 99 06/09/19 09:05 73 18 150/91 H 99 06/09/19 08:55 71 15 132/93 100 06/09/19 08:45 82 19 132/75 100 06/09/19 08:39 36.8 C 83 16 141/77 H 99 Pain Intensity Right Hip: Pain Intensity: 4 Notes Mental Status: alert / awake / arousable and participated in evaluation Patient Amnestic to Procedure: Yes Nausea / Vomiting: improving with treatment Pain: adequately controlled Airway Patency, RR, SpO2: stable & adequate BP & HR: stable & adequate Hydration State: stable & adequate Neuraxial Anesthesia: was administered and sensory block resolved Anesthetic Complications: no major complications apparent and Pt Satisfied with anesthetic care Notes: Pt had emesis x 1 after surgery when attempting to eat. No additional episodes and currently eating breakfast. No other complaints.
[2019-06-10] MEDS ORDERED: CHOLECALCIFEROL 1,000 UNITS TAB PO SCH (09:00)
[2019-06-10] MEDS ORDERED: VITAMIN B COMPLEX TAB PO SCH (09:00)
[2019-06-10] MEDS: DOCUSATE SODIUM 100 MG CAP PO SCH (09:29)
[2019-06-10] MEDS: FERROUS GLUCONATE 324 MG TAB PO SCH (09:29)
[2019-06-10] MEDS: ASPIRIN 81 MG ECTAB PO SCH (09:29)
[2019-06-10] MEDS: LATANOPROST 0.005% OP SOLN 2.5 ML BTL OP SCH (09:30)
[2019-06-10] MEDS: ASCORBIC ACID 500 MG TAB PO SCH (09:30)
[2019-06-10] MEDS: LISINOPRIL 5 MG TAB PO SCH (09:30)
[2019-06-10] MEDS: MULTIVITAMIN TAB PO SCH (09:30)
--- NOTE | 2019-06-14 16:13 | Discharge Summary ---
ADMITTING PHYSICIAN AND SURGEON: Dr. Ugo Young. ADMITTING DIAGNOSIS: Right hip degenerative joint disease. SURGERY PERFORMED: Right total hip arthroplasty. SECONDARY DIAGNOSES: Hypertension, hiatal hernia, low back pain. CONSULTS: None obtained. HISTORY AND PHYSICAL EXAMINATION: Well documented in the patient's chart. HOSPITAL COURSE: The patient was admitted on 06/09/2019 underwent total hip arthroplasty, tolerated the procedure well. There were no complications. He was transferred to the PACU postoperatively and later to the orthopedic floor for further care. He was given Ancef for antibiotic prophylaxis, KAMILLE stockings, SCDs and aspirin for DVT prophylaxis. Hemoglobin, hematocrit and vital signs were monitored during his hospital stay and remained stable, did not require any blood transfusions. There were no complications. On postoperative day 1, he was tolerating a regular diet, pain was controlled with oral pain medicine. He was participating in physical therapy. Postop day 1, he was discharged home, set up with home health services, given printed discharge instructions as well as new prescriptions for extra strength Tylenol, aspirin, iron and tramadol. Continue his home medicines. Continue physical therapy, weightbearing as tolerated, KAMILLE stockings, total hip precautions. Follow up approximately 2 weeks postop or sooner if there are any problems or concerns.
== END 2019-06-10 14:08 | disposition home health service (06) | DRG 470 ==
LOC: ASU 04:50 → 3E 08:53